=== PATIENT | male | born 1960 | race Caucasian/White ===

== ENCOUNTER 2019-08-14 16:57 | Outpatient (REF) | payer BC, SELFPAY ==
[2019-08-14 19:00] LABS: Anion Gap 9.7 mmol/L (3-11); BUN 25 mg/dL (7-18); CO2 27.3 mmol/L (21.0-32.0); CREATININE 1.38 mg/dL (0.70-1.30); Calcium 8.7 mg/dL (8.5-10.1); Chloride 95 mmol/L (98-107); Estimated GFR 52.38 (mL/min/1.73m2); Glucose 380 mg/dL (74-106); Potassium 3.9 mmol/L (3.5-5.1); Sodium 132 mmol/L (136-145)
== END 2019-08-14 17:17 ==
LOC: LBN 16:57
PROVIDERS: PCP Family Medicine; Visit Provider Family Medicine
DX: E11.43 Type 2 diabetes mellitus with diabetic autonomic (poly)neuropathy (principal); E11.65 Type 2 diabetes mellitus with hyperglycemia
CPT/HCPCS: 80048

== ENCOUNTER 2019-12-01 10:40 | Outpatient (CLI) | payer BC, SELFPAY ==
[2019-12-03 06:29] LABS: Patient Race White; SARS-CoV-2 RNA Undetected (Undetected); SARS-CoV-2 Specimen Source Nasopharynx
== END 2019-12-01 11:00 ==
PROVIDERS: PCP Family Medicine; Visit Provider Nurse Practitioner Adult Health
DX: Z11.59 Encounter for screening for other viral diseases (principal)
CPT/HCPCS: U0003

== ENCOUNTER 2021-07-04 15:46 | Outpatient (CLI) | payer BC, SELFPAY ==
--- NOTE | 2021-07-04 15:45 | RT.EKG_ITS ---
APPROVED REPORT Exam: Resting ECG Reason for Exam: use of methylphenidate Patient Location: O HR:60 bpm ECG Measurements Heart Rate 60 AXIS WI 245 P 11 QRSd 160 QRS -7 QT 478 T -21 QTc 477 Conclusion Sinus rhythm...normal P axis, V-rate 60- 99 Prolonged WI interval...WI >220, V-rate 50- 90 Right bundle branch block...QRSd>120, terminal axis(90,270)
== END 2021-07-04 15:47 | disposition home or self-care (01) ==
LOC: DI.KIM 15:49
PROVIDERS: PCP Family Medicine; Visit Provider Family Medicine
DX: Z79.899 Other long term (current) drug therapy (principal)
CPT/HCPCS: 93010

== ENCOUNTER → 2022-12-27 16:41 | Outpatient (CLI) | payer BC, SELFPAY ==
--- NOTE | 2022-12-27 | DI.RAD_ITS ---
Exam(s) XR FINGER RT LITTLE EXAM: XR FINGER RT LITTLE CLINICAL HISTORY: RT FINGER PAIN M79.644 ? FX. TECHNIQUE: 2D digital imaging was performed of the right finger. Three views were obtained. PA/AP, oblique, and lateral views were obtained. COMPARISON: No exams were available for comparison FINDINGS: BONES: There is a nondisplaced fracture of the posterior aspect of the base of the distal phalanx of the little finger. No bony destructive lesion is seen. JOINTS: No dislocation present. SOFT TISSUE: Normal. IMPRESSION: Nondisplaced fracture the dorsal aspect of the base of the distal phalanx of the little finger. DATA REPOSITORY: RADIATION DOSE DELIVERED:
== END ==
PROVIDERS: PCP Family Medicine; Visit Provider Physician Assistant Medical
DX: S62.666A Nondisplaced fracture of distal phalanx of right little finger, initial encounter for closed fracture (principal); X58.XXXA Exposure to other specified factors, initial encounter
CPT/HCPCS: 73140

== ENCOUNTER → 2023-01-30 19:10 | Outpatient (CLI) | payer BC, SELFPAY ==
--- NOTE | 2023-01-30 14:30 | DI.RAD_ITS ---
Exam(s) XR CHEST 2V PA LATERAL EXAM: XR CHEST 2V PA LATERAL CLINICAL HISTORY: L sided rhonchi R05.9 COUGH TECHNIQUE: 2D digital imaging was performed. COMPARISON: No exams were available for comparison FINDINGS: HEART: Normal size. Aorta: Not dilated. PULMONARY VASCULATURE: Normal. LUNGS: Clear. PLEURAL SPACE: No pleural effusion or pneumothorax. BONE:Unremarkable for age. Soft tissues: Unremarkable. IMPRESSION: No acute abnormality. DATA REPOSITORY: RADIATION DOSE DELIVERED:
== END ==
PROVIDERS: PCP Family Medicine; Visit Provider Family Medicine
DX: R05.9 Cough, unspecified (principal)
CPT/HCPCS: 71046

== ENCOUNTER 2023-07-14 17:27 | Emergency (ER) | payer BC, SELFPAY ==
[2023-07-14 17:28] VITALS: BP 187/82; PULSE 60; RESP 12; TEMP 36; O2SAT 96
--- NOTE | 2023-07-14 17:39 | ED.GENADUL_ITS ---
Discharge Plan Disposition Patient Disposition: Home Condition: Stable Discharge Details Clinical Impression: Impacted cerumen of right ear Primary Care Provider: Marquise Moyer ED Provider: Rivas Penny Home Meds and New Rx's Prescriptions: Continued sildenafil 100 mg tablet 100 mg PO DAILY PRN (Reason: sexual activity) Qty: 14 0RF Rx Instructions: administer 30 minutes to 4 hours before activity (DME) blood sugar diagnostic Strip See Rx Instructions .ROUTE .MEDSUPPLY Qty: 100 12RF Rx Instructions: As directed daily to maintain A1C less than 7; Dx: E11.43 fluticasone propionate [Flonase Allergy Relief] 50 mcg/actuation spray,suspension 1 spray ELEANOR BID Qty: 18.2 6RF Rx Instructions: administer into each nostril (DME) lancets [Soft Touch Lancets] Misc See Rx Instructions .ROUTE .MEDSUPPLY Qty: 200 6RF Rx Instructions: As directed QD to maintain A1C less than 7 methylphenidate HCl [Ritalin] 20 mg tablet 20 mg PO DAILY MDD 56 mg PRN (Reason: ADD) Qty: 28 0RF Rx Instructions: Take if needed at the end of the day if 36 mg dose wears off paroxetine HCl 20 mg tablet 20 mg PO DAILY Qty: 90 0RF methylphenidate HCl 36 mg tablet extended release 24hr 36 mg PO QAM MDD 56 mg Qty: 28 0RF methylphenidate HCl 36 mg tablet extended release 24hr 36 mg PO QAM MDD 56 mg Qty: 28 0RF (DME) pen needle, diabetic [BD Ultra-Fine Tuyet Pen Needle] 32 gauge x 5/32 needle See Rx Instructions .ROUTE .MEDSUPPLY Qty: 100 6RF Rx Instructions: USE 1 daily Dx: E11.43 amlodipine 10 mg tablet 10 mg PO DAILY Qty: 90 3RF naproxen 500 mg tablet 500 mg PO BID PRN (Reason: pain) Qty: 60 0RF Lantus Solostar U-100 Insulin 100 unit/mL (3 mL) insulin pen 30 unit subcut QHS Qty: 15 3RF Rx Instructions: Increase dose by one unit each week if fasting blood sugars are higher than 120 insulin aspart U-100 [Novolog FlexPen U-100 Insulin] 100 unit/mL (3 mL) insulin pen See Rx Instructions subcut TID Qty: 15 6RF Rx Instructions: 0 units less than 139; 2 units 140-180; 3 units 181-240; 4 units 241-300; 6 units 301-350; 8 units 351-400; call if over 400 subcutaneously three times a day; metformin 500 mg tablet See Rx Instructions .ROUTE .COMPLEX Qty: 180 3RF Dose Instruction: TAKE 2 TABLETS BY MOUTH TWICE DAILY Rx Instructions: TAKE 2 TABLETS BY MOUTH TWICE DAILY Jardiance 25 mg tablet 25 mg PO QAM Qty: 90 3RF aspirin [Adult Low Dose Aspirin] 81 mg tablet,delayed release (DR/EC) 81 mg PO DAILY atorvastatin 20 mg tablet 20 mg PO QHS Qty: 90 3RF tacrolimus 0.1 % ointment 1 applic topical BID betamethasone, augmented 0.05 % ointment 1 applic topical BID PRN (Reason: psoriasis) Rx Instructions: Apply to affected areas twice daily for 2 weeks. Take 1 week off, then repeat cycle as needed omeprazole 20 mg capsule,delayed release(DR/EC) 20 mg PO DAILY Qty: 90 3RF losartan-hydrochlorothiazide [Hyzaar] 100-25 mg tablet 1 tab PO DAILY Qty: 90 3RF (DME) [employer] Eh 3 Sensor Device See Rx Instructions .Route Qty: 1 6RF Rx Instructions: Dx: E11.65; check QID and prn to keep HbA1c less than 6.5% Discharge Instructions Instructions: Impactaci?n de Cerumen (ED) Additional Instructions: You were seen in the emergency department for the impacted earwax or cerumen of your right ear. As we discussed you can treat this at home using the behind the counter medicine called Colace, make sure you get the liquid form of the stool softener Colace. Add a capful of hydrogen peroxide, pour into affected ear and let soak for 15 to 30 minutes and purchase an [id number] ear flushing kit as we used today in the ER to perform this at home. Please return for any severe ear pain loss of hearing, remember to use warm water when flushing your ears. Referrals: Marquise Moyer DO [Primary Care Provider] - Discharge Data Discharge Date/Time-TO BE ENTERED AT DEPARTURE: 07/14/23 18:53 HPI General Date/Time Provider Initiated Documentation: 07/14/23 17:38 . HPI Narrative: 63 year-old male presents to ED today by POV/ambulating with a chief complaint of acute on chronic buildup of wax in the right ear this is a known issue with onset over the past few days. Quality described as muffled hearing, no radiation to fever, significant ear pain, pain behind the ear, swelling of the pinna, URI symptoms. Severity is described as mild. Palliating factors include attempted olive oil and hydrogen peroxide at home. Provoking factors include nothing specific. Patient not anticoagulated. Related Data Home Medications Medication Instructions Recorded Confirmed aspirin 81 mg tablet,delayed 81 mg PO DAILY 06/12/19 07/14/23 release (Adult Low Dose Aspirin) sildenafil 100 mg tablet 100 mg PO DAILY PRN sexual 06/19/19 07/14/23 activity #14 tabs pen needle, diabetic 32 gauge x #100 ea 04/29/20 05/03/23 (BD Ultra-Fine Tuyet Pen Needle) amlodipine 10 mg tablet 10 mg PO DAILY #90 tabs 10/10/21 07/14/23 atorvastatin 20 mg tablet 20 mg PO QHS #90 tabs 01/19/22 07/14/23 betamethasone, augmented 0.05 % 1 applic topical BID PRN psoriasis 05/15/22 07/14/23 topical ointment tacrolimus 0.1 % topical ointment 1 applic topical BID psoriasis 05/15/22 07/14/23 naproxen 500 mg tablet 500 mg PO BID PRN pain #60 tabs 05/16/22 07/14/23 blood sugar diagnostic #100 ea 06/27/22 05/03/23 fluticasone propionate 50 1 spray intranasal BID #18.2 mL 06/27/22 07/14/23 mcg/actuation nasal spray,suspension (Flonase Allergy Relief) lancets (Soft Touch Lancets) #200 ea 06/27/22 05/03/23 losartan 100 1 tab PO DAILY #90 tabs 12/22/22 07/14/23 mg-hydrochlorothiazide 25 mg tablet (Hyzaar) omeprazole 20 mg capsule,delayed 20 mg PO DAILY #90 caps 12/22/22 07/14/23 release empagliflozin 25 mg tablet 25 mg PO QAM #90 tabs 01/30/23 07/14/23 (Jardiance) insulin aspart U-100 100 unit/mL See Rx Instructions subcut TID #15 01/30/23 07/14/23 (3 mL) subcutaneous pen (Novolog mL FlexPen U-100 Insulin aspart) insulin glargine 100 unit/mL (3 30 unit (0.3 mL) subcut QHS #15 mL 01/30/23 07/14/23 mL) subcutaneous pen (Lantus Solostar U-100 Insulin) metformin 500 mg tablet See Rx Instructions .Route 01/30/23 07/14/23 .COMPLEX #180 tabs methylphenidate HCl 20 mg tablet 20 mg PO DAILY PRN ADD #28 tabs 05/03/23 07/14/23 (Ritalin) methylphenidate HCl 36 mg 36 mg PO QAM #28 tabs 05/03/23 05/03/23 tablet,extended release 24 hr methylphenidate HCl 36 mg 36 mg PO QAM #28 tabs 05/03/23 05/03/23 tablet,extended release 24 hr paroxetine HCl 20 mg tablet 20 mg PO DAILY #90 tabs 05/03/23 07/14/23 blood-glucose sensor (FreeStyle #1 ea 05/18/23 Eh 3 Sensor device) Previous Rx's Medication Instructions Recorded sildenafil 100 mg tablet 100 mg PO DAILY PRN sexual 06/19/19 activity #14 tabs pen needle, diabetic 32 gauge x #100 ea 04/29/20 (BD Ultra-Fine Tuyet Pen Needle) amlodipine 10 mg tablet 10 mg PO DAILY #90 tabs 10/10/21 atorvastatin 20 mg tablet 20 mg PO QHS #90 tabs 01/19/22 naproxen 500 mg tablet 500 mg PO BID PRN pain #60 tabs 05/16/22 blood sugar diagnostic #100 ea 06/27/22 fluticasone propionate 50 1 spray intranasal BID #18.2 mL 06/27/22 mcg/actuation nasal spray,suspension (Flonase Allergy Relief) lancets (Soft Touch Lancets) #200 ea 06/27/22 losartan 100 1 tab PO DAILY #90 tabs 12/22/22 mg-hydrochlorothiazide 25 mg tablet (Hyzaar) omeprazole 20 mg capsule,delayed 20 mg PO DAILY #90 caps 12/22/22 release empagliflozin 25 mg tablet 25 mg PO QAM #90 tabs 01/30/23 (Jardiance) insulin aspart U-100 100 unit/mL See Rx Instructions subcut TID #15 01/30/23 (3 mL) subcutaneous pen (Novolog mL FlexPen U-100 Insulin aspart) insulin glargine 100 unit/mL (3 30 unit (0.3 mL) subcut QHS #15 mL 01/30/23 mL) subcutaneous pen (Lantus Solostar U-100 Insulin) metformin 500 mg tablet See Rx Instructions .Route 01/30/23 .COMPLEX #180 tabs methylphenidate HCl 20 mg tablet 20 mg PO DAILY PRN ADD #28 tabs 05/03/23 (Ritalin) methylphenidate HCl 36 mg 36 mg PO QAM #28 tabs 05/03/23 tablet,extended release 24 hr methylphenidate HCl 36 mg 36 mg PO QAM #28 tabs 05/03/23 tablet,extended release 24 hr paroxetine HCl 20 mg tablet 20 mg PO DAILY #90 tabs 05/03/23 blood-glucose sensor (FreeStyle #1 ea 05/18/23 Eh 3 Sensor device) Allergies Allergy/AdvReac Type Severity Reaction Status Date / Time enviromental Allergy Intermediate chest Uncoded 05/03/23 15:34 tightness, dizzy, itchy watery eyes/nose cats claw Allergy Mild Determined Uncoded 05/03/23 15:34 through testing General Stated Complaint: EarProblem WILLOW: 4 Review of Systems All systems reviewed & are unremarkable except as noted in HPI and below Exam Narrative Exam Narrative: GENERAL APPEARANCE: Well-nourished, non-toxic, awake and alert, atraumatic, no acute distress. SKIN: Warm, pink, dry, intact, without rashes/lesions/ulcerations. HEAD: Normocephalic, atraumatic, normal hair distribution for gender/age. EYES: Pupils PERRLA, EOMs intact without nystagmus, normal conjunctiva, no exudates on lids/lashes. ENT: Nares patent, no circumoral cyanosis, no facial swelling, R ear cerumen impaction, L TM wnl, no mastoid tenderness, R TM clear and wnl after removal of cerumen NECK: Supple, trachea midline, painless cervical ROM. LUNGS/CHEST: Non-labored respirations, normal A/P diameter, symmetrical expansion, no chest wall deformity HEART (CV/PV): No peripheral edema, no JVD. ABDOMEN: Soft, non-distended, no guarding. MSK: Normal ROM, no swelling/deformity to bilateral UEs or LEs, moving all extremities without weakness, no cyanosis, spine midline without tenderness, normal curvature. NEURO: Mental Status AAOx4 - alert to person, place, time, events No facial droop, no forehead involvement. Motor: No focal weakness - strength 5/5 in bilateral UEs and LEs, proximal and distal, symmetric. Sensory: sensation intact to light touch globally. Gait normal: patient ambulated without ataxia into ED room. PSYCH: euthymic, cooperative, pleasant, appropriate speech Course Vital Signs Vital signs: Vital Signs Temperature 36.0 C L 07/14/23 17:28 Pulse 60 07/14/23 17:28 Respiratory Rate 12 07/14/23 17:28 Blood Pressure 187/82 H 07/14/23 17:28 Pulse Oximetry 96 07/14/23 17:28 Temperature 36.0 C L 07/14/23 17:28 Temperature Source Temporal Artery Scan 07/14/23 17:28 Pulse 60 07/14/23 17:28 Respiratory Rate 12 07/14/23 17:28 Respiratory Effort Normal, Non-Labored 07/14/23 17:30 Blood Pressure 187/82 H 07/14/23 17:28 Blood Pressure Position Sitting 07/14/23 17:28 Pulse Oximetry 96 07/14/23 17:28 Oxygen Delivery Method Room Air 07/14/23 17:28 Oxygen Flow Rate 0 07/14/23 17:28 Pain Level 3 07/14/23 17:28 Medical Decision Making This dictation utilizes [id number] dictation software and may contain unedited grammatical errors. 63 y/o M presents to ED today with a chief complaint of acute on chronic cerumen impaction- has tried homeopathic remedies without relief, reporting mild muffled hearing - no pain or fever or URI symptoms. Patients' medical history: Noncontributory. Family and social history: Noncontributory. Pertinent exam findings / vital signs include ENT: Nares patent, no circumoral cyanosis, no facial swelling, R ear cerumen impaction, L TM wnl, no mastoid tenderness, R TM clear and wnl after removal of cerumen. Differential / pathologies of concern include cerumen impaction, not otic infection. Diagnostic studies of: -None. Interventions of: -Soaked to the right otic canal and Colace mixed with several drops of hydrogen peroxide to break apart cerumen and irrigated with otic irrigation kit. ED Course/Assessment/Plan: 63-year-old male presents with cerumen impaction of right ear, there is no signs on exam to suggest any more insidious pathology, his TMs were clear after cerumen removal, counseled that he can perform this intervention at home without any prescription medications. The patient verbalized understanding of this plan, strict return criteria for signs of severe infection especially with pain behind the ear with fever. Findings not consistent with mastoiditis, acute otitis media. Disposition of Impacted Cerumen of Right Ear. Patient verbalized understanding of the plan and return to ED criteria and engaged in shared decision making. Medical Records Medical records reviewed: Yes I reviewed the patient's medical records. Quality:[facility] Health Related Social Needs: No Data to Display PENDING SALE TO [facility] All Active Problems (Updated 07/14/23 @ 18:43 by TIANNA Ortega) Impacted cerumen of right ear (Acute) Diabetes mellitus, type II, insulin dependent (Acute) Shoulder arthritis (Acute) Family history of prostate cancer in father (Chronic) Father of disease Osteoarthritis of right knee (Acute) Diplopia (Acute) With visual field defects [facility] [place]. 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 Macular edema present both eyes. Psoriasis (Chronic) GERD without esophagitis (Acute) Erectile dysfunction (Acute) Depressive disorder (Chronic) ADD (attention deficit disorder) (Acute) Hyperlipidemia (Acute) Hypertension (Chronic) Medical History Basal cell carcinoma Surgical History History of Mohs micrographic surgery for skin cancer 04/26/2022 From [facility] (at oGrdy Manning MD (basal cell carcinoma) Family History Mother Skin cancer Anxiety Depression Hypertension Social History Smoking/Tobacco Use Status: Current-Occasional Smokeless tobacco user: other (cigars once a month) Smoking risk assessment performed?: Yes Alcohol Intake: current Alcohol type: hard liquor Drug use: Never Substance use type: does not use Adopted: No Caregiver/Support person: No Foster care: No Household members: spouse, children and other Details: mother Housing: house Number of Children: 3 Education Level: other Details: Bachelors degree Do you need help understanding health information?: Never 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 Pets and animals: Yes Pets and animals: cat(s) and dog(s) Sexually active: Yes Do you think of yourself as: straight/heterosexual Current gender identity: male What is your relationship status?: How often do you talk on the phone with friends or family?: three or more times per week How often do you get together with friends or relatives?: three or more times per week Do you belong to any clubs or organized social groups?: no Panel score (0-1 are the most socially isolated patients): 2 What type of physical activity do you participate in: other Details: hiking Duration: 30-45 minutes/day Frequency: 5-6 times per week Doreen/Restorationism: Gnosticism Special doreen needs: No Seatbelt use: always Helmet use: Yes Drive intox or ride w/intox chair car driver: No
[2023-07-14] MEDS: Docusate Sodium 100 MG/10 ML CUP PO (18:00)
[2023-07-14 18:50] VITALS: BP 150/75; PULSE 61; RESP 18; O2SAT 99
== END 2023-07-14 18:53 | disposition home or self-care (01) ==
PROVIDERS: Emergency Provider Physician Assistant; PCP Family Medicine
DX: H61.21 Impacted cerumen, right ear; E11.9 Type 2 diabetes mellitus without complications; Z79.4 Long term (current) use of insulin; I10 Essential (primary) hypertension; Z79.899 Other long term (current) drug therapy
CPT/HCPCS: 69209; 99282; 99283

== ENCOUNTER 2023-08-26 16:43 | Emergency (ER) | payer BC, SELFPAY ==
[2023-08-26 16:50] VITALS: BP 200/75; PULSE 63; RESP 18; TEMP 36.6; O2SAT 98
[2023-08-26 19:30] VITALS: TEMP 36.6
--- NOTE | 2023-08-26 19:31 | ED.GENADUL_ITS ---
Discharge Plan Disposition Patient Disposition: Home Condition: Stable Discharge Details Clinical Impression: Diabetic foot ulcer Primary Care Provider: Marquise Moyer ED Provider: Rivas Penny Home Meds and New Rx's Prescriptions: New cephalexin 500 mg capsule 500 mg PO QID 10 Days Qty: 40 0RF mupirocin 2 % ointment 1 applic topical BID Qty: 15 0RF Rx Instructions: apply 1/2 to affected area twice per day Continued sildenafil 100 mg tablet 100 mg PO DAILY PRN (Reason: sexual activity) Qty: 14 0RF Rx Instructions: administer 30 minutes to 4 hours before activity (DME) blood sugar diagnostic Strip See Rx Instructions .ROUTE .MEDSUPPLY Qty: 100 12RF Rx Instructions: As directed daily to maintain A1C less than 7; Dx: E11.43 fluticasone propionate [Flonase Allergy Relief] 50 mcg/actuation spray,suspension 1 spray ELEANOR BID Qty: 18.2 6RF Rx Instructions: administer into each nostril (DME) lancets [Soft Touch Lancets] Misc See Rx Instructions .ROUTE .MEDSUPPLY Qty: 200 6RF Rx Instructions: As directed QD to maintain A1C less than 7 paroxetine HCl 30 mg tablet 30 mg PO DAILY Qty: 90 3RF omeprazole 20 mg capsule,delayed release(DR/EC) 20 mg PO DAILY Qty: 90 3RF (DME) FreeStyle Eh 3 Sensor Device See Rx Instructions .Route Qty: 1 6RF Rx Instructions: Dx: E11.65; check QID and prn to keep HbA1c less than 6.5% methylphenidate HCl 20 mg tablet 20 mg PO DAILY MDD 56 mg Qty: 28 0RF Rx Instructions: Take after ER tablet wears off, if needed methylphenidate HCl [Ritalin] 20 mg tablet 20 mg PO DAILY MDD 56 mg PRN (Reason: ADD) Qty: 28 0RF Rx Instructions: Take if needed at the end of the day if 36 mg dose wears off methylphenidate HCl 20 mg tablet 20 mg PO DAILY MDD 56 mg Qty: 28 0RF Rx Instructions: Take after the ER tablet wears off, if needed methylphenidate HCl 36 mg tablet extended release 24hr 36 mg PO QAM MDD 56 mg Qty: 28 0RF methylphenidate HCl 36 mg tablet extended release 24hr 36 mg PO QAM MDD 56 mg Qty: 28 0RF methylphenidate HCl 36 mg tablet extended release 24hr 36 mg PO DAILY MDD 56 mg Qty: 28 0RF (DME) pen needle, diabetic [BD Ultra-Fine Tuyet Pen Needle] 32 gauge x 5/32 needle See Rx Instructions .ROUTE .MEDSUPPLY Qty: 100 6RF Rx Instructions: USE 1 daily Dx: E11.43 amlodipine 10 mg tablet 10 mg PO DAILY Qty: 90 3RF naproxen 500 mg tablet 500 mg PO BID PRN (Reason: pain) Qty: 60 0RF Lantus Solostar U-100 Insulin 100 unit/mL (3 mL) insulin pen 30 unit subcut QHS Qty: 15 3RF Rx Instructions: Increase dose by one unit each week if fasting blood sugars are higher than 120 insulin aspart U-100 [Novolog FlexPen U-100 Insulin] 100 unit/mL (3 mL) insulin pen See Rx Instructions subcut TID Qty: 15 6RF Rx Instructions: 0 units less than 139; 2 units 140-180; 3 units 181-240; 4 units 241-300; 6 units 301-350; 8 units 351-400; call if over 400 subcutaneously three times a day; metformin 500 mg tablet See Rx Instructions .ROUTE .COMPLEX Qty: 180 3RF Dose Instruction: TAKE 2 TABLETS BY MOUTH TWICE DAILY Rx Instructions: TAKE 2 TABLETS BY MOUTH TWICE DAILY Jardiance 25 mg tablet 25 mg PO QAM Qty: 90 3RF aspirin [Adult Low Dose Aspirin] 81 mg tablet,delayed release (DR/EC) 81 mg PO DAILY atorvastatin 20 mg tablet 20 mg PO QHS Qty: 90 3RF tacrolimus 0.1 % ointment 1 applic topical BID betamethasone, augmented 0.05 % ointment 1 applic topical BID PRN (Reason: psoriasis) Rx Instructions: Apply to affected areas twice daily for 2 weeks. Take 1 week off, then repeat cycle as needed losartan-hydrochlorothiazide [Hyzaar] 100-25 mg tablet 1 tab PO DAILY Qty: 90 3RF Discharge Instructions Instructions: Cephalexin, Mupirocin, Foot Care for Diabetics Additional Instructions: You were seen in the emergency department for your left third toe diabetic foot ulcer, please do warm compresses and Epsom salt soaks as we discussed, I have prescribed you a topical prescription strength antibiotic to apply 2-3 times per day, I have started you on oral antibiotics called cephalexin for infection. Please get your primary care to refer you to a wound care clinic in the area, there are none at this hospital but a simple Google search will directly to their locations. I believe there is some in [place]. Please return for signs of neurovascular compromise to the foot or spreading inf ection like red streaking up the foot and leg, increasing pain, drainage of pus from the area, fever. Referrals: Marquise Moyer DO [Primary Care Provider] - HPI General Date/Time Provider Initiated Documentation: 08/26/23 17:06 . HPI Narrative: 63 year-old male presents to ED today by POV/ambulating with a chief complaint of left third toe diabetic foot wound that has been not responding to bacitracin for over a week. Quality described as not overtly painful, scabbed over aspect that contacts the second toe, no radiation to red streaking up the leg, purulent drainage, complete numbness, draining wound, deep ulceration. Severity is described as mild. Palliating factors include bacitracin without relief. Provoking factors include T2DM. Events leading up to the incident/Associated Symptoms: Patient does not have follow-up with wound care. Patient not anticoagulated. Related Data Home Medications Medication Instructions Recorded Confirmed aspirin 81 mg tablet,delayed 81 mg PO DAILY 06/12/19 08/26/23 release (Adult Low Dose Aspirin) sildenafil 100 mg tablet 100 mg PO DAILY PRN sexual 06/19/19 08/26/23 activity #14 tabs pen needle, diabetic 32 gauge x #100 ea 04/29/20 08/26/23 (BD Ultra-Fine Tuyet Pen Needle) amlodipine 10 mg tablet 10 mg PO DAILY #90 tabs 10/10/21 08/26/23 atorvastatin 20 mg tablet 20 mg PO QHS #90 tabs 01/19/22 08/26/23 betamethasone, augmented 0.05 % 1 applic topical BID PRN psoriasis 05/15/22 08/26/23 topical ointment tacrolimus 0.1 % topical ointment 1 applic topical BID psoriasis 05/15/22 08/26/23 naproxen 500 mg tablet 500 mg PO BID PRN pain #60 tabs 05/16/22 08/26/23 blood sugar diagnostic #100 ea 06/27/22 08/26/23 fluticasone propionate 50 1 spray intranasal BID #18.2 mL 06/27/22 08/26/23 mcg/actuation nasal spray,suspension (Flonase Allergy Relief) lancets (Soft Touch Lancets) #200 ea 06/27/22 08/26/23 losartan 100 1 tab PO DAILY #90 tabs 12/22/22 08/26/23 mg-hydrochlorothiazide 25 mg tablet (Hyzaar) empagliflozin 25 mg tablet 25 mg PO QAM #90 tabs 01/30/23 08/26/23 (Jardiance) insulin aspart U-100 100 unit/mL See Rx Instructions subcut TID #15 01/30/23 08/26/23 (3 mL) subcutaneous pen (Novolog mL FlexPen U-100 Insulin aspart) insulin glargine 100 unit/mL (3 30 unit (0.3 mL) subcut QHS #15 mL 01/30/23 08/26/23 mL) subcutaneous pen (Lantus Solostar U-100 Insulin) metformin 500 mg tablet See Rx Instructions .Route 01/30/23 08/26/23 .COMPLEX #180 tabs blood-glucose sensor (FreeStyle #1 ea 08/09/23 08/26/23 Eh 3 Sensor device) methylphenidate HCl 20 mg tablet 20 mg PO DAILY #28 tabs 08/09/23 08/26/23 methylphenidate HCl 20 mg tablet 20 mg PO DAILY #28 tabs 08/09/23 08/26/23 methylphenidate HCl 20 mg tablet 20 mg PO DAILY PRN ADD #28 tabs 08/09/23 08/26/23 (Ritalin) methylphenidate HCl 36 mg 36 mg PO DAILY #28 tabs 08/09/23 08/26/23 tablet,extended release 24 hr methylphenidate HCl 36 mg 36 mg PO QAM #28 tabs 08/09/23 08/26/23 tablet,extended release 24 hr methylphenidate HCl 36 mg 36 mg PO QAM #28 tabs 08/09/23 08/26/23 tablet,extended release 24 hr omeprazole 20 mg capsule,delayed 20 mg PO DAILY #90 caps 08/09/23 08/26/23 release paroxetine HCl 30 mg tablet 30 mg PO DAILY #90 tabs 08/09/23 08/26/23 cephalexin 500 mg capsule 500 mg PO QID 10 days #40 caps 08/26/23 mupirocin 2 % topical ointment 1 applic topical BID #15 grams 08/26/23 Previous Rx's Medication Instructions Recorded sildenafil 100 mg tablet 100 mg PO DAILY PRN sexual 06/19/19 activity #14 tabs pen needle, diabetic 32 gauge x #100 ea 04/29/20 (BD Ultra-Fine Tuyet Pen Needle) amlodipine 10 mg tablet 10 mg PO DAILY #90 tabs 10/10/21 atorvastatin 20 mg tablet 20 mg PO QHS #90 tabs 01/19/22 naproxen 500 mg tablet 500 mg PO BID PRN pain #60 tabs 05/16/22 blood sugar diagnostic #100 ea 06/27/22 fluticasone propionate 50 1 spray intranasal BID #18.2 mL 06/27/22 mcg/actuation nasal spray,suspension (Flonase Allergy Relief) lancets (Soft Touch Lancets) #200 ea 06/27/22 losartan 100 1 tab PO DAILY #90 tabs 12/22/22 mg-hydrochlorothiazide 25 mg tablet (Hyzaar) empagliflozin 25 mg tablet 25 mg PO QAM #90 tabs 01/30/23 (Jardiance) insulin aspart U-100 100 unit/mL See Rx Instructions subcut TID #15 01/30/23 (3 mL) subcutaneous pen (Novolog mL FlexPen U-100 Insulin aspart) insulin glargine 100 unit/mL (3 30 unit (0.3 mL) subcut QHS #15 mL 01/30/23 mL) subcutaneous pen (Lantus Solostar U-100 Insulin) metformin 500 mg tablet See Rx Instructions .Route 01/30/23 .COMPLEX #180 tabs blood-glucose sensor (FreeStyle #1 ea 08/09/23 Eh 3 Sensor device) methylphenidate HCl 20 mg tablet 20 mg PO DAILY #28 tabs 08/09/23 methylphenidate HCl 20 mg tablet 20 mg PO DAILY #28 tabs 08/09/23 methylphenidate HCl 20 mg tablet 20 mg PO DAILY PRN ADD #28 tabs 08/09/23 (Ritalin) methylphenidate HCl 36 mg 36 mg PO DAILY #28 tabs 08/09/23 tablet,extended release 24 hr methylphenidate HCl 36 mg 36 mg PO QAM #28 tabs 08/09/23 tablet,extended release 24 hr methylphenidate HCl 36 mg 36 mg PO QAM #28 tabs 08/09/23 tablet,extended release 24 hr omeprazole 20 mg capsule,delayed 20 mg PO DAILY #90 caps 08/09/23 release paroxetine HCl 30 mg tablet 30 mg PO DAILY #90 tabs 08/09/23 cephalexin 500 mg capsule 500 mg PO QID 10 days #40 caps 08/26/23 mupirocin 2 % topical ointment 1 applic topical BID #15 grams 08/26/23 Allergies Allergy/AdvReac Type Severity Reaction Status Date / Time enviromental Allergy Intermediate chest Uncoded 08/09/23 15:40 tightness, dizzy, itchy watery eyes/nose cats claw Allergy Mild Determined Uncoded 08/09/23 15:40 through testing General Stated Complaint: Cellulitis WILLOW: 4 Review of Systems All systems reviewed & are unremarkable except as noted in HPI and below Exam Narrative Exam Narrative: GENERAL APPEARANCE: Well-nourished, non-toxic, awake and alert, atraumatic, no acute distress. SKIN: Warm, pink, dry, intact, 0.5cm ulceration superficial to the medial aspect of the left third toe, no lymphadenitis, no purulent drainage, brisk capillary refill. HEAD: Normocephalic, atraumatic, normal hair distribution for gender/age. EYES: Pupils PERRLA, EOMs intact without nystagmus, normal conjunctiva, no exudates on lids/lashes. ENT: Nares patent, no circumoral cyanosis, no facial swelling NECK: Supple, trachea midline, painless cervical ROM. LUNGS/CHEST: Non-labored respirations, normal A/P diameter, symmetrical expansion, no chest wall deformity HEART (CV/PV): Regular rate, L dorsalis pedis pulse 2+, no peripheral edema, no JVD. ABDOMEN: Soft, non-distended, no guarding. MSK: Normal ROM, no swelling/deformity to bilateral UEs or LEs, moving all extremities without weakness, no cyanosis, spine midline without tenderness, normal curvature. NEURO: Mental Status AAOx4 - alert to person, place, time, events No facial droop, no forehead involvement. Motor: No focal weakness - strength 5/5 in bilateral UEs and LEs, proximal and distal, symmetric. Sensory: sensation intact to light touch globally. Gait normal: patient ambulated without ataxia into ED room. PSYCH: euthymic, cooperative, pleasant, appropriate speech Course Vital Signs Vital signs: Vital Signs Temperature 36.6 C 08/26/23 16:50 Pulse 63 08/26/23 16:50 Respiratory Rate 18 08/26/23 16:50 Blood Pressure 200/75 H 08/26/23 16:50 Pulse Oximetry 98 08/26/23 16:50 Temperature 36.6 C 08/26/23 16:50 Temperature Source Temporal Artery Scan 08/26/23 16:50 Pulse 63 08/26/23 16:50 Respiratory Rate 18 08/26/23 16:50 Blood Pressure 200/75 H 08/26/23 16:50 Blood Pressure Position Sitting 08/26/23 16:50 Pulse Oximetry 98 08/26/23 16:50 Oxygen Delivery Method Room Air 08/26/23 16:50 Oxygen Flow Rate 0 08/26/23 16:50 Medical Decision Making This dictation utilizes [id number] dictation software and may contain unedited grammatical errors. 63 year-old male presents to ED today by POV/ambulating with a chief complaint of left third toe diabetic foot wound that has been not responding to bacitracin for over a week. Quality described as not overtly painful, scabbed over aspect that contacts the second toe, no radiation to red streaking up the leg, purulent drainage, complete numbness, draining wound, deep ulceration. Severity is described as mild. Palliating factors include bacitracin without relief. Provoking factors include T2DM. Events leading up to the incident/Associated Symptoms: Patient does not have follow-up with wound care. Patients' medical history: T2DM, psoriasis, hypertension. Family and social history: noncontributory. Pertinent exam findings / vital signs include 0.5cm ulceration superficial to the medial aspect of the left third toe, no lymphadenitis, no purulent drainage, brisk capillary refill. Differential / pathologies of concern include diabetic foot ulcer, cellulitis, not abscess, not NV compromise. Diagnostic studies of: -none. Interventions of: -Rx cephalexin, Rx mupirocin, recommend wound care visits. ED Course/Assessment/Plan: 63-year-old male presents with left third toe diabetic foot ulceration, no lymphadenitis spreading of the foot, he is neurovascularly intact with brisk capillary refill distal to the ulceration, started him on Keflex and ibuprofen, recommend warm soaks and hot compresses and follow-up with his primary care provider for referral to wound care. Strict return criteria for signs of worsening infection or neurovascular compromise. Findings not consistent with abscess, NV comrpomise. Disposition of Diabetic Foot Ulcer. Patient verbalized understanding of the plan and return to ED criteria and engaged in shared decision making. Medical Records Medical records reviewed: Yes I reviewed the patient's medical records. Quality:SDOH Health Related Social Needs: No Data to Display PFSH All Active Problems (Updated 08/26/23 @ 19:37 by TIANNA Ortega) Diabetic foot ulcer (Acute) Diabetes mellitus, type II, insulin dependent (Acute) Shoulder arthritis (Acute) Family history of prostate cancer in father (Chronic) Father of disease Osteoarthritis of right knee (Acute) Diplopia (Acute) With visual field defects [facility] Dr. 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 Macular edema present both eyes. Psoriasis (Chronic) GERD without esophagitis (Acute) Erectile dysfunction (Acute) Depressive disorder (Chronic) ADD (attention deficit disorder) (Acute) Hyperlipidemia (Acute) Hypertension (Chronic) Medical History (Updated 08/26/23 @ 19:37 by TIANNA Ortega) Basal cell carcinoma Surgical History (Updated 08/09/23 @ 16:23 by Kassandra Allen) Benign neoplasm of skin of forehead 1952 - Refugee status - [facility] History of tonsillectomy (~1964) [facility] History of hernia repair (~2021) [facility] History of Mohs micrographic surgery for skin cancer 04/26/2022 [facility] Gianluca Manning MD (basal cell carcinoma) Family History Mother Skin cancer Anxiety Depression Hypertension Social History Smoking/Tobacco Use Status: Current-Occasional Smokeless tobacco user: other (cigars once a month) Smoking risk assessment performed?: Yes Alcohol Intake: current Alcohol type: hard liquor Drug use: Never Substance use type: does not use Adopted: No Caregiver/Support person: No Foster care: No Household members: spouse, children and other Details: mother Housing: house Number of Children: 3 Education Level: other Details: Bachelors degree Do you need help understanding health information?: Never 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 Pets and animals: Yes Pets and animals: cat(s) and dog(s) Sexually active: Yes Do you think of yourself as: straight/heterosexual Current gender identity: male What is your relationship status?: How often do you talk on the phone with friends or family?: three or more times per week How often do you get together with friends or relatives?: three or more times per week Do you belong to any clubs or organized social groups?: no Panel score (0-1 are the most socially isolated patients): 2 What type of physical activity do you participate in: other Details: hiking Duration: 30-45 minutes/day Frequency: 5-6 times per week Doreen/Protestant: Pentecostalism Special doreen needs: No Seatbelt use: always Helmet use: Yes Drive intox or ride w/intox street flusher driver: No
[2023-08-26] MEDS: Cephalexin 500 MG CAP, 2 CAPS/BTL PO (20:00)
== END 2023-08-26 19:51 | disposition home or self-care (01) ==
PROVIDERS: Emergency Provider Physician Assistant; PCP Family Medicine
DX: E11.621 Type 2 diabetes mellitus with foot ulcer; L97.521 Non-pressure chronic ulcer of other part of left foot limited to breakdown of skin
CPT/HCPCS: 99283

== ENCOUNTER 2024-01-21 18:02 | Emergency (ER) | payer BC, SELFPAY ==
[2024-01-21 18:14] VITALS: BP 166/82; PULSE 63; RESP 14; TEMP 36.9; O2SAT 97
--- NOTE | 2024-01-21 18:15 | DI.RAD_ITS ---
Exam(s) XR FOOT RT COMPLETE EXAM: XR FOOT RT COMPLETE CLINICAL HISTORY: Nontraumatic pain to dorsum of foot. TECHNIQUE: 2D digital imaging was performed of the right foot. Three images were obtained. AP, obl ique and lateral views were obtained. COMPARISON: No exams were available for comparison FINDINGS: BONES: No acute fracture is present. No bony destructive lesion is seen. There is a small plantar radha caneal spur. Soft tissue calcifications are seen posterior to the calcaneus. These may be associate d with the Achilles tendon. JOINTS: No dislocation present. Hammertoe deformities of the 2nd through 5th toes are noted. The dusty nt spaces are well maintained. SOFT TISSUE: Normal. IMPRESSION: No acute abnormality. DATA REPOSITORY: RADIATION DOSE DELIVERED:
--- NOTE | 2024-01-21 19:37 | W.ED.GENAD ---
Discharge Plan Disposition Patient Disposition: Home Discharge Details Clinical Impression: Foot pain, right Primary Care Provider: Marquise Moyer ED Provider: Jaky Grant Home Meds and New Rx's Prescriptions: No Action sildenafil 100 mg tablet 100 mg PO DAILY PRN (Reason: sexual activity) Qty: 14 0RF Rx Instructions: administer 30 minutes to 4 hours before activity (DME) blood sugar diagnostic Strip See Rx Instructions .ROUTE .MEDSUPPLY Qty: 100 12RF Rx Instructions: As directed daily to maintain A1C less than 7; Dx: E11.43 fluticasone propionate [Flonase Allergy Relief] 50 mcg/actuation spray,suspension 1 spray ELEANOR BID Qty: 18.2 6RF Rx Instructions: administer into each nostril (DME) lancets [Soft Touch Lancets] Misc See Rx Instructions .ROUTE .MEDSUPPLY Qty: 200 6RF Rx Instructions: As directed QD to maintain A1C less than 7 paroxetine HCl 30 mg tablet 30 mg PO DAILY Qty: 90 3RF omeprazole 20 mg capsule,delayed release(DR/EC) 20 mg PO DAILY Qty: 90 3RF ketoconazole 2 % cream 1 applic topical DAILY Qty: 120 6RF Rx Instructions: Apply to toenails once daily (DME) pen needle, diabetic [BD Ultra-Fine Tuyet Pen Needle] 32 gauge x 5/32 needle See Rx Instructions .ROUTE .MEDSUPPLY Qty: 100 6RF Rx Instructions: USE 1 daily Dx: E11.43 insulin aspart U-100 [Novolog FlexPen U-100 Insulin] 100 unit/mL (3 mL) insulin pen See Rx Instructions subcut TID Qty: 15 6RF Rx Instructions: 0 units less than 139; 2 units 140-180; 3 units 181-240; 4 units 241-300; 6 units 301-350; 8 units 351-400; call if over 400 subcutaneously three times a day; metformin 500 mg tablet See Rx Instructions .ROUTE .COMPLEX Qty: 180 3RF Dose Instruction: TAKE 2 TABLETS BY MOUTH TWICE DAILY Rx Instructions: TAKE 2 TABLETS BY MOUTH TWICE DAILY Jardiance 25 mg tablet 25 mg PO QAM Qty: 90 3RF amlodipine 10 mg tablet 10 mg PO DAILY Qty: 90 3RF atorvastatin 20 mg tablet 20 mg PO QHS Qty: 90 3RF Lantus Solostar U-100 Insulin 100 unit/mL (3 mL) insulin pen 30 unit subcut QHS Qty: 15 3RF Rx Instructions: Increase dose by one unit each week if fasting blood sugars are higher than 120 losartan-hydrochlorothiazide [Hyzaar] 100-25 mg tablet 1 tab PO DAILY Qty: 90 3RF (DME) FreeStyle Eh 3 Sensor Device See Rx Instructions .Route Qty: 1 6RF Rx Instructions: Dx: E11.65; check QID and prn to keep HbA1c less than 6.5% methylphenidate HCl [Ritalin] 20 mg tablet 20 mg PO DAILY MDD 56 mg PRN (Reason: ADD) Qty: 28 0RF Rx Instructions: Take if needed at the end of the day if 27 mg dose wears off methylphenidate HCl 27 mg tablet extended release 24hr 27 mg PO QAM MDD 47 mg Qty: 28 0RF methylphenidate HCl 27 mg tablet extended release 24hr 27 mg PO QAM MDD 47 mg Qty: 28 0RF methylphenidate HCl 20 mg tablet 20 mg PO DAILY MDD 47 mg Qty: 28 0RF Rx Instructions: Take after ER tablet wears off, if needed methylphenidate HCl 20 mg tablet 20 mg PO DAILY MDD 47 mg Qty: 28 0RF Rx Instructions: Take after the ER tablet wears off, if needed methylphenidate HCl 27 mg tablet extended release 24hr 27 mg PO DAILY MDD 47 mg Qty: 28 0RF aspirin [Adult Low Dose Aspirin] 81 mg tablet,delayed release (DR/EC) 81 mg PO DAILY tacrolimus 0.1 % ointment 1 applic topical BID betamethasone, augmented 0.05 % ointment 1 applic topical BID PRN (Reason: psoriasis) Rx Instructions: Apply to affected areas twice daily for 2 weeks. Take 1 week off, then repeat cycle as needed Discharge Instructions Additional Instructions: I encourage you to follow-up with [facility] podiatry for reassessment and management of your foot pain. Your x-ray was negative, no sign of fracture today. Please wear supportive shoes such as your hiking boots. Elevate your foot at the end of the day. Keep an eye out for signs of infection such as redness, warmth, increasing pain, swelling, fever/chills. If you notice any of these, please seek care immediately. Referrals: Rut Thompson DPM [[facility] STAFF PHYSICIAN] - HPI General Date/Time Provider Initiated Documentation: 01/21/24 18:12. HPI Narrative: Juanito is a 63year old male who presents to the emergency department today for evaluation of right upper foot pain. He reports that pain started approximately 2 weeks ago, is mild in the morning but increases throughout the day with walking. He says it feels better when he is wearing hiking boots. Pain is described as a burning pain/regular pain. No known injury. No overlying rashes, warmth, or redness. Denies fever/chills, new paresthesias (has neuropathy per baseline), general malaise, knee pain, other lower leg pain, other new joint or muscle aches/pains. No history of previous pain similar to this.. Past medical history is significant for T2DM that is well-controlled, blood sugars usually around 140 being treated with insulin. He also has arthritis. Physical exam reassuring. Mild tenderness to palpation of dorsum of foot over first and second metatarsals, no point tenderness or deformity noted. No redness/warmth/rashes.+ CMS to toes, no pain or swelling of MTP joint. Brisk cap refill. Full painless range of motion to ankle and knee. D/dx includes but is not limited to: Stress fracture, neuropathic pain, tendinitis. No red flags concerning for cellulitis or infectious/vascular process requiring blood work or other diagnostic imaging on an emergent basis at this time. I independently interpreted the following tests: Right foot x-ray, no acute findings. This was confirmed by radiologist Unclear etiology of foot pain, though likely neuropathic pain versus tendinitis. Recommend follow-up with podiatry. Reviewed discharge instructions with patient, including symptomatic management and red flags indicating need for return to emergency care Related Data Home Medications ?Medication ?Instructions ?Recorded ?Confirmed aspirin 81 mg tablet,delayed 81 mg PO DAILY 06/12/19 12/14/23 release (Adult Low Dose Aspirin) sildenafil 100 mg tablet 100 mg PO DAILY PRN sexual 06/19/19 12/14/23 activity #14 tabs pen needle, diabetic 32 gauge x #100 ea 04/29/20 12/14/2332 (BD Ultra-Fine Tuyet Pen Needle) betamethasone, augmented 0.05 % 1 applic topical BID PRN psoriasis 05/15/22 12/14/23 topical ointment tacrolimus 0.1 % topical ointment 1 applic topical BID psoriasis 05/15/22 12/14/23 blood sugar diagnostic #100 ea 06/27/22 12/14/23 fluticasone propionate 50 1 spray intranasal BID #18.2 mL 06/27/22 12/14/23 mcg/actuation nasal spray,suspension (Flonase Allergy Relief) lancets (Soft Touch Lancets) #200 ea 06/27/22 12/14/23 empagliflozin 25 mg tablet 25 mg PO QAM #90 tabs 01/30/23 12/14/23 (Jardiance) insulin aspart U-100 100 unit/mL See Rx Instructions subcut TID #15 01/30/23 12/14/23 (3 mL) subcutaneous pen (Novolog mL FlexPen U-100 Insulin aspart) metformin 500 mg tablet See Rx Instructions .Route 01/30/23 12/14/23 .COMPLEX #180 tabs omeprazole 20 mg capsule,delayed 20 mg PO DAILY #90 caps 08/09/23 12/14/23 release paroxetine HCl 30 mg tablet 30 mg PO DAILY #90 tabs 08/09/23 12/14/23 ketoconazole 2 % topical cream 1 applic topical DAILY #120 grams 10/15/23 12/14/23 amlodipine 10 mg tablet 10 mg PO DAILY #90 tabs 10/25/23 12/14/23 atorvastatin 20 mg tablet 20 mg PO QHS #90 tabs 10/25/23 12/14/23 insulin glargine 100 unit/mL (3 30 unit (0.3 mL) subcut QHS #15 mL 10/25/23 12/14/23 mL) subcutaneous pen (Lantus Solostar U-100 Insulin) blood-glucose sensor (FreeStyle #1 ea 12/14/23 12/14/23 Eh 3 Sensor device) losartan 100 1 tab PO DAILY #90 tabs 12/14/23 12/14/23 mg-hydrochlorothiazide 25 mg tablet (Hyzaar) methylphenidate HCl 20 mg tablet 20 mg PO DAILY #28 tabs 12/14/23 12/14/23 methylphenidate HCl 20 mg tablet 20 mg PO DAILY #28 tabs 12/14/23 12/14/23 methylphenidate HCl 20 mg tablet 20 mg PO DAILY PRN ADD #28 tabs 12/14/23 12/14/23 (Ritalin) methylphenidate HCl 27 mg 27 mg PO DAILY #28 tabs 12/14/23 12/14/23 tablet,extended release 24 hr methylphenidate HCl 27 mg 27 mg PO QAM #28 tabs 12/14/23 12/14/23 tablet,extended release 24 hr methylphenidate HCl 27 mg 27 mg PO QAM #28 tabs 12/14/23 12/14/23 tablet,extended release 24 hr Previous Rx's ?Medication ?Instructions ?Recorded sildenafil 100 mg tablet 100 mg PO DAILY PRN sexual 06/19/19 activity #14 tabs pen needle, diabetic 32 gauge x #100 ea 04/29/20 (BD Ultra-Fine Tuyet Pen Needle) blood sugar diagnostic #100 ea 06/27/22 fluticasone propionate 50 1 spray intranasal BID #18.2 mL 06/27/22 mcg/actuation nasal spray,suspension (Flonase Allergy Relief) lancets (Soft Touch Lancets) #200 ea 06/27/22 empagliflozin 25 mg tablet 25 mg PO QAM #90 tabs 01/30/23 (Jardiance) insulin aspart U-100 100 unit/mL See Rx Instructions subcut TID #15 01/30/23 (3 mL) subcutaneous pen (Novolog mL FlexPen U-100 Insulin aspart) metformin 500 mg tablet See Rx Instructions .Route 01/30/23 .COMPLEX #180 tabs omeprazole 20 mg capsule,delayed 20 mg PO DAILY #90 caps 08/09/23 release paroxetine HCl 30 mg tablet 30 mg PO DAILY #90 tabs 08/09/23 ketoconazole 2 % topical cream 1 applic topical DAILY #120 grams 10/15/23 amlodipine 10 mg tablet 10 mg PO DAILY #90 tabs 10/25/23 atorvastatin 20 mg tablet 20 mg PO QHS #90 tabs 10/25/23 insulin glargine 100 unit/mL (3 30 unit (0.3 mL) subcut QHS #15 mL 10/25/23 mL) subcutaneous pen (Lantus Solostar U-100 Insulin) blood-glucose sensor (FreeStyle #1 ea 12/14/23 Eh 3 Sensor device) losartan 100 1 tab PO DAILY #90 tabs 12/14/23 mg-hydrochlorothiazide 25 mg tablet (Hyzaar) methylphenidate HCl 20 mg tablet 20 mg PO DAILY #28 tabs 12/14/23 methylphenidate HCl 20 mg tablet 20 mg PO DAILY #28 tabs 12/14/23 methylphenidate HCl 20 mg tablet 20 mg PO DAILY PRN ADD #28 tabs 12/14/23 (Ritalin) methylphenidate HCl 27 mg 27 mg PO DAILY #28 tabs 12/14/23 tablet,extended release 24 hr methylphenidate HCl 27 mg 27 mg PO QAM #28 tabs 12/14/23 tablet,extended release 24 hr methylphenidate HCl 27 mg 27 mg PO QAM #28 tabs 12/14/23 tablet,extended release 24 hr Allergies Allergy/AdvReac Type Severity Reaction Status Date / Time enviromental Allergy Intermediate chest Uncoded 01/21/24 18:17 tightness, dizzy, itchy watery eyes/nose cats claw Allergy Mild Determined Uncoded 01/21/24 18:17 through testing General Stated Complaint: Orthopedic WILLOW: 3 Review of Systems Narrative: See HPI Exam Const General: cooperative, healthy appearing, comfortable, no acute distress, well developed and well groomed Nutritional Appearance: average body habitus Orientation: alert and oriented x3 Resp Effort & Inspection: normal respiratory effort and able to speak in complete sentences Extrem Right lower extremity: normal to inspection, full ROM and normal capillary refill Left lower extremity: full ROM, normal capillary refill, no joint enlargement, knee Details: normal to inspection, ankle Details: normal to inspection and foot Details: normal capillary refill, normal to inspection, tenderness Location: of the dorsal foot (midfoot, no point tenderness), toes with normal ROM, no edema, vascular exam Details: dorsalis pedis pulse present and other (Neuropathy unchanged from baseline); no abrasions, no lacerations, no ecchymosis, no crepitus, no foreign bodies and no puncture wound Course Vital Signs Vital signs: Vital Signs Temperature 36.9 C 01/21/24 18:14 Pulse 63 01/21/24 18:14 Respiratory Rate 14 01/21/24 18:14 Blood Pressure 166/82 H 01/21/24 18:14 Pulse Oximetry 97 01/21/24 18:14 Temperature 36.9 C 01/21/24 18:14 Temperature Source Oral 01/21/24 18:14 Pulse 63 01/21/24 18:14 Respiratory Rate 14 01/21/24 18:14 Respiratory Effort Normal 01/21/24 19:33 Blood Pressure 166/82 H 01/21/24 18:14 Blood Pressure Position Sitting 01/21/24 18:14 Pulse Oximetry 97 01/21/24 18:14 Oxygen Delivery Method Room Air 01/21/24 18:14 Oxygen Flow Rate 0 01/21/24 18:14 Pain Level 7 01/21/24 18:14 Medical Decision Making Imaging Data Radiologic Study: Radiologist's impression: Accession No. : [id number] Creator : SRUTHI MARQUEZ Dictator : SRUTHI MARQUEZ Zipper Trimmer Hand : Cinder Block Maker : SRUTHI MARQUEZ Approver2 : Report Date : 01/21/2024 19:25:19 Exam(s) XR FOOT RT COMPLETE EXAM: XR FOOT RT COMPLETE CLINICAL HISTORY: Nontraumatic pain to dorsum of foot. TECHNIQUE: 2D digital imaging was performed of the right foot. Three images were obtained. AP, oblique and lateral views were obtained. COMPARISON: No exams were available for comparison FINDINGS: BONES: No acute fracture is present. No bony destructive lesion is seen. There is a small plantar calcaneal spur. Soft tissue calcifications are seen posterior to the calcaneus. These may be associated with the Achilles tendon. JOINTS: No dislocation present. Hammertoe deformities of the 2nd through 5th toes are noted. The joint spaces are well maintained. SOFT TISSUE: Normal. IMPRESSION: No acute abnormality. DATA REPOSITORY: RADIATION DOSE DELIVERED: Quality:SDOH Health Related Social Needs: No Data to Display PFSH All Active Problems (Updated 01/21/24 @ 19:41 by Jaky Acuna) Foot pain, right (Acute) Nail dystrophy (Acute) Paresthesias (Acute) Onychomycosis (Acute) Diabetes mellitus, type II, insulin dependent (Acute) Shoulder arthritis (Acute) Family history of prostate cancer in father (Chronic) Father of disease Osteoarthritis of right knee (Acute) Diplopia (Acute) With visual field defects [facility] Dr. 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 Macular edema present both eyes. Psoriasis (Chronic) GERD without esophagitis (Acute) Erectile dysfunction (Acute) Depressive disorder (Chronic) ADD (attention deficit disorder) (Acute) Hyperlipidemia (Acute) Hypertension (Chronic) Medical History Basal cell carcinoma Surgical History Benign neoplasm of skin of forehead 1952 - Refugee status - [facility] History of tonsillectomy (~1964) [facility] History of hernia repair (~2021) [facility] History of Mohs micrographic surgery for skin cancer 04/26/2022 From [facility] Gianluca Manning MD (basal cell carcinoma) Family History Mother Skin cancer Anxiety Depression Hypertension Social History Smoking/Tobacco Use Status: Current-Occasional Smokeless tobacco user: other (cigars once a month) Smoking risk assessment performed?: Yes Alcohol Intake: current Alcohol type: hard liquor Drug use: Never Substance use type: does not use Adopted: No Caregiver/Support person: No Foster care: No Household members: spouse, children and other Details: mother Housing: house Number of Children: 3 Education Level: other Details: Bachelors degree Do you need help understanding health information?: Never 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 Pets and animals: Yes Pets and animals: cat(s) and dog(s) Sexually active: Yes Do you think of yourself as: straight/heterosexual Current gender identity: male What is your relationship status?: How often do you talk on the phone with friends or family?: three or more times per week How often do you get together with friends or relatives?: three or more times per week Do you belong to any clubs or organized social groups?: no Panel score (0-1 are the most socially isolated patients): 2 What type of physical activity do you participate in: other Details: hiking Duration: 30-45 minutes/day Frequency: 5-6 times per week Doreen/Anglican: Scientology Special doreen needs: No Seatbelt use: always Helmet use: Yes Drive intox or ride w/intox water tanker driver: No PAWSS Have you Been Recently Intoxicated or Drunk Within the Last 30 days?: No Have you Ever Experienced Previous Episodes of Alcohol Withdrawal?: No Have you ever Experienced Withdrawal Seizures?: No Have you ever Experienced Delirium Tremens(DT)s?: No Have you ever undergone Alcohol Rehabilitation Treatment (i.e, inpt ot outpatient treatment programs)?: No Have you ever Experienced Blackouts?: No Have you ever Combined Alcohol with other Downers within the last 90 days?: No Have you ever Combined Alcohol with any other Substance of Abuse during the last 90 days?: No Positive Blood Alcohol level on Presentation? [PCS.BAL]: No Evidence of Increased Autonomic Activity (i.e. HR>120, tremor, sweating, agitation, nausea)?: No Result: 0
== END 2024-01-21 19:47 | disposition home or self-care (01) ==
PROVIDERS: Emergency Provider Nurse Practitioner Family; PCP Family Medicine
DX: M79.671 Pain in right foot (principal)
CPT/HCPCS: 99283; 73630; 99284

== ENCOUNTER 2024-03-27 08:12 | Emergency (ER) | payer BC, SELFPAY ==
[2024-03-27 08:12] VITALS: BP 171/83; PULSE 54; RESP 15; TEMP 36.5; O2SAT 98
--- NOTE | 2024-03-27 08:29 | ED.GENADUL_ITS ---
Discharge Plan Disposition Patient Disposition: Home Condition: Stable Discharge Details Clinical Impression: Sprain of right shoulder Primary Care Provider: Marquise Moyer ED Provider: Juanito Mera Home Meds and New Rx's Prescriptions: Continued sildenafil 100 mg tablet 100 mg PO DAILY PRN (Reason: sexual activity) Qty: 14 0RF Rx Instructions: administer 30 minutes to 4 hours before activity (DME) blood sugar diagnostic Strip See Rx Instructions .ROUTE .MEDSUPPLY Qty: 100 12RF Rx Instructions: As directed daily to maintain A1C less than 7; Dx: E11.43 fluticasone propionate [Flonase Allergy Relief] 50 mcg/actuation spray,suspension 1 spray ELEANOR BID Qty: 18.2 6RF Rx Instructions: administer into each nostril (DME) lancets [Soft Touch Lancets] Misc See Rx Instructions .ROUTE .MEDSUPPLY Qty: 200 6RF Rx Instructions: As directed QD to maintain A1C less than 7 paroxetine HCl 30 mg tablet 30 mg PO DAILY Qty: 90 3RF omeprazole 20 mg capsule,delayed release(DR/EC) 20 mg PO DAILY Qty: 90 3RF ketoconazole 2 % cream 1 applic topical DAILY Qty: 120 6RF Rx Instructions: Apply to toenails once daily (DME) pen needle, diabetic [BD Ultra-Fine Tuyet Pen Needle] 32 gauge x 5/32 needle See Rx Instructions .ROUTE .MEDSUPPLY Qty: 100 6RF Rx Instructions: USE 1 daily Dx: E11.43 insulin aspart U-100 [Novolog FlexPen U-100 Insulin] 100 unit/mL (3 mL) insulin pen See Rx Instructions subcut TID Qty: 15 6RF Rx Instructions: 0 units less than 139; 2 units 140-180; 3 units 181-240; 4 units 241-300; 6 units 301-350; 8 units 351-400; call if over 400 subcutaneously three times a day; metformin 500 mg tablet See Rx Instructions .ROUTE .COMPLEX Qty: 180 3RF Dose Instruction: TAKE 2 TABLETS BY MOUTH TWICE DAILY Rx Instructions: TAKE 2 TABLETS BY MOUTH TWICE DAILY Jardiance 25 mg tablet 25 mg PO QAM Qty: 90 3RF amlodipine 10 mg tablet 10 mg PO DAILY Qty: 90 3RF atorvastatin 20 mg tablet 20 mg PO QHS Qty: 90 3RF Lantus Solostar U-100 Insulin 100 unit/mL (3 mL) insulin pen 30 unit subcut QHS Qty: 15 3RF Rx Instructions: Increase dose by one unit each week if fasting blood sugars are higher than 120 losartan-hydrochlorothiazide [Hyzaar] 100-25 mg tablet 1 tab PO DAILY Qty: 90 3RF (DME) FreeStyle Eh 3 Sensor Device See Rx Instructions .Route Qty: 1 6RF Rx Instructions: Dx: E11.65; check QID and prn to keep HbA1c less than 6.5% methylphenidate HCl [Ritalin] 20 mg tablet 20 mg PO DAILY MDD 56 mg PRN (Reason: ADD) Qty: 28 0RF Rx Instructions: Take if needed at the end of the day if 27 mg dose wears off methylphenidate HCl 27 mg tablet extended release 24hr 27 mg PO QAM MDD 47 mg Qty: 28 0RF methylphenidate HCl 27 mg tablet extended release 24hr 27 mg PO QAM MDD 47 mg Qty: 28 0RF methylphenidate HCl 27 mg tablet extended release 24hr 27 mg PO DAILY MDD 47 mg Qty: 28 0RF aspirin [Adult Low Dose Aspirin] 81 mg tablet,delayed release (DR/EC) 81 mg PO DAILY tacrolimus 0.1 % ointment 1 applic topical BID betamethasone, augmented 0.05 % ointment 1 applic topical BID PRN (Reason: psoriasis) Rx Instructions: Apply to affected areas twice daily for 2 weeks. Take 1 week off, then repeat cycle as needed methylphenidate HCl 20 mg tablet 20 mg PO DAILY MDD 47 mg PRN Rx Instructions: Take after ER tablet wears off, if needed methylphenidate HCl 20 mg tablet 20 mg PO DAILY MDD 47 mg PRN Rx Instructions: Take after the ER tablet wears off, if needed Discharge Instructions Additional Instructions: Your x-ray did not show any broken bones. I suspect you sprained your AC joint. If your stomach pain in 1 to 2 weeks follow-up with your primary care provider. Make sure you are trying to move your shoulder several times a day and take your arm out of the sling. If you feel more ill or have severe worsening pain return to the emergency department for reevaluation. HPI General Mode of arrival: ambulatory . Date/Time Provider Initiated Documentation: 03/27/24 08:19 . Limitations to Documentation: no limitations . Information obtained by: patient . History of Present Illness 64 year old M presents to the emergency department with the chief complaint of right shoulder pain s/p fall, described as moderate, Quality is described as aching, and is localized to the right and upper extremity. Patient started experiencing this day(s) (1) and it has been constant. Rest improves symptom(s), Mo vement worsens symptoms . Patient notes no other symptoms.. Patient did receive the following treatments prior to arrival, none Related Data Home Medications ?Medication ?Instructions ?Recorded ?Confirmed aspirin 81 mg tablet,delayed 81 mg PO DAILY 06/12/19 03/27/24 release (Adult Low Dose Aspirin) sildenafil 100 mg tablet 100 mg PO DAILY PRN sexual 06/19/19 03/27/24 activity #14 tabs pen needle, diabetic 32 gauge x #100 ea 04/29/20 03/27/24 (BD Ultra-Fine Tuyet Pen Needle) betamethasone, augmented 0.05 % 1 applic topical BID PRN psoriasis 05/15/22 03/27/24 topical ointment tacrolimus 0.1 % topical ointment 1 applic topical BID psoriasis 05/15/22 03/27/24 blood sugar diagnostic #100 ea 06/27/22 03/27/24 fluticasone propionate 50 1 spray intranasal BID #18.2 mL 06/27/22 03/27/24 mcg/actuation nasal spray,suspension (Flonase Allergy Relief) lancets (Soft Touch Lancets) #200 ea 06/27/22 03/27/24 empagliflozin 25 mg tablet 25 mg PO QAM #90 tabs 01/30/23 03/27/24 (Jardiance) insulin aspart U-100 100 unit/mL See Rx Instructions subcut TID #15 01/30/23 03/27/24 (3 mL) subcutaneous pen (Novolog mL FlexPen U-100 Insulin aspart) metformin 500 mg tablet See Rx Instructions .Route 01/30/23 03/27/24 .COMPLEX #180 tabs omeprazole 20 mg capsule,delayed 20 mg PO DAILY #90 caps 08/09/23 03/27/24 release paroxetine HCl 30 mg tablet 30 mg PO DAILY #90 tabs 08/09/23 03/27/24 ketoconazole 2 % topical cream 1 applic topical DAILY #120 grams 10/15/23 amlodipine 10 mg tablet 10 mg PO DAILY #90 tabs 10/25/23 03/27/24 atorvastatin 20 mg tablet 20 mg PO QHS #90 tabs 10/25/23 03/27/24 insulin glargine 100 unit/mL (3 30 unit (0.3 mL) subcut QHS #15 mL 10/25/23 03/27/24 mL) subcutaneous pen (Lantus Solostar U-100 Insulin) blood-glucose sensor (FreeStyle #1 ea 12/14/23 03/27/24 Eh 3 Sensor device) losartan 100 1 tab PO DAILY #90 tabs 12/14/23 03/27/24 mg-hydrochlorothiazide 25 mg tablet (Hyzaar) methylphenidate HCl 20 mg tablet 20 mg PO DAILY PRN ADD #28 tabs 12/14/23 03/27/24 (Ritalin) methylphenidate HCl 27 mg 27 mg PO DAILY #28 tabs 12/14/23 03/27/24 tablet,extended release 24 hr methylphenidate HCl 27 mg 27 mg PO QAM #28 tabs 12/14/23 03/27/24 tablet,extended release 24 hr methylphenidate HCl 27 mg 27 mg PO QAM #28 tabs 12/14/23 03/27/24 tablet,extended release 24 hr methylphenidate HCl 20 mg tablet 20 mg PO DAILY PRN 03/27/24 03/27/24 methylphenidate HCl 20 mg tablet 20 mg PO DAILY PRN 03/27/24 03/27/24 Previous Rx's ?Medication ?Instructions ?Recorded sildenafil 100 mg tablet 100 mg PO DAILY PRN sexual 06/19/19 activity #14 tabs pen needle, diabetic 32 gauge x #100 ea 04/29/20 (BD Ultra-Fine Tuyet Pen Needle) blood sugar diagnostic #100 ea 06/27/22 fluticasone propionate 50 1 spray intranasal BID #18.2 mL 06/27/22 mcg/actuation nasal spray,suspension (Flonase Allergy Relief) lancets (Soft Touch Lancets) #200 ea 06/27/22 empagliflozin 25 mg tablet 25 mg PO QAM #90 tabs 01/30/23 (Jardiance) insulin aspart U-100 100 unit/mL See Rx Instructions subcut TID #15 01/30/23 (3 mL) subcutaneous pen (Novolog mL FlexPen U-100 Insulin aspart) metformin 500 mg tablet See Rx Instructions .Route 01/30/23 .COMPLEX #180 tabs omeprazole 20 mg capsule,delayed 20 mg PO DAILY #90 caps 08/09/23 release paroxetine HCl 30 mg tablet 30 mg PO DAILY #90 tabs 08/09/23 ketoconazole 2 % topical cream 1 applic topical DAILY #120 grams 10/15/23 amlodipine 10 mg tablet 10 mg PO DAILY #90 tabs 10/25/23 atorvastatin 20 mg tablet 20 mg PO QHS #90 tabs 10/25/23 insulin glargine 100 unit/mL (3 30 unit (0.3 mL) subcut QHS #15 mL 10/25/23 mL) subcutaneous pen (Lantus Solostar U-100 Insulin) blood-glucose sensor (FreeStyle #1 ea 12/14/23 Eh 3 Sensor device) losartan 100 1 tab PO DAILY #90 tabs 12/14/23 mg-hydrochlorothiazide 25 mg tablet (Hyzaar) methylphenidate HCl 20 mg tablet 20 mg PO DAILY PRN ADD #28 tabs 12/14/23 (Ritalin) methylphenidate HCl 27 mg 27 mg PO DAILY #28 tabs 12/14/23 tablet,extended release 24 hr methylphenidate HCl 27 mg 27 mg PO QAM #28 tabs 12/14/23 tablet,extended release 24 hr methylphenidate HCl 27 mg 27 mg PO QAM #28 tabs 12/14/23 tablet,extended release 24 hr Allergies Allergy/AdvReac Type Severity Reaction Status Date / Time cat dander Allergy Intermediate congestion Verified 03/27/24 08:19 grass pollen Allergy Intermediate runny Verified 03/27/24 08:19 nose, sinus blockage General Stated Complaint: Orthopedic WILLOW: 4 Review of Systems All systems reviewed & are unremarkable except as noted in HPI and below Constitutional Constitutional: Denies chills, Denies fever(s) and Denies weakness Cardiovascular Cardiovascular: Denies chest pain and Denies dyspnea Respiratory Respiratory: Denies cough and Denies dyspnea Gastrointestinal Gastrointestinal: Denies abdominal pain, Denies nausea and Denies vomiting Musculoskeletal Musculoskeletal: Reports arthralgias and Denies joint swelling Neurologic Neurologic: Denies weakness Psychiatric Psychiatric: Denies depression Exam Const General: no acute distress Orientation: alert HENMT Head: normal to inspection Ears: external ears normal General nose exam: external nose normal Mouth: moist mucous membranes Eyes General: appearance normal, both eyes and all related structures Neck Neck: normal visual inspection, full ROM and nontender Resp Effort & Inspection: normal respiratory effort and able to speak in complete sentences Cardio Rate: regular rate Skin General skin exam: no rashes or lesions noted Neuro General: patient alert and patient oriented x3 Extrem General: full ROM and capillary refill normal Psych Mental Status: mental status grossly normal Course Vital Signs Vital signs: Vital Signs Temperature 36.5 C 03/27/24 08:12 Pulse 54 L 03/27/24 08:12 Respiratory Rate 15 03/27/24 08:12 Blood Pressure 171/83 H 03/27/24 08:12 Pulse Oximetry 98 03/27/24 08:12 Temperature 36.5 C 03/27/24 08:12 Temperature Source Oral 03/27/24 08:12 Pulse 54 L 03/27/24 08:12 Respiratory Rate 15 03/27/24 08:12 Blood Pressure 171/83 H 03/27/24 08:12 Blood Pressure Position Sitting 03/27/24 08:12 Pulse Oximetry 98 03/27/24 08:12 Oxygen Delivery Method Room Air 03/27/24 08:12 Oxygen Flow Rate 0 03/27/24 08:12 Pain Level 6 03/27/24 08:12 Medical Decision Making 64-year-old male comes in with right shoulder pain after he fell yesterday. He says he was at work and missed a step causing him to fall from a standing height onto his right shoulder. He did not hit his head or loss of consciousness. He had continued pain this morning so came here for an evaluation. He denies any headaches, neck pain, back pain, chest or abdomen pain. He has tenderness over the right AC joint. He does have full range of motion of the shoulder but does have pain with range of motion. Intact distal sensation and pulses. Suspect AC joint sprain or contusion, will obtain x-rays to evaluate for possible fracture. X-ray shows no fracture. Does have AC joint arthritis. I suspect an AC joint sprain as well. He is stable, I advised to follow-up with his PCP if pain is not improving over 1 to 2 weeks, return precautions given Differential Diagnosis Differential Diagnosis: Fracture, sprain, AC joint injury Quality:SDOH Health Related Social Needs: No Data to Display PFSH All Active Problems (Updated 03/27/24 @ 09:45 by Juanito Mera MD) Sprain of right shoulder (Acute) Pes cavus of right foot (Acute) Pain, joint, foot, right (Acute) Nail dystrophy (Acute) Paresthesias (Acute) Onychomycosis (Acute) Diabetes mellitus, type II, insulin dependent (Acute) Shoulder arthritis (Acute) Family history of prostate cancer in father (Chronic) Father of disease Osteoarthritis of right knee (Acute) Diplopia (Acute) With visual field defects [facility] Dr. 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 Macular edema present both eyes. Psoriasis (Chronic) GERD without esophagitis (Acute) Erectile dysfunction (Acute) Depressive disorder (Chronic) ADD (attention deficit disorder) (Acute) Hyperlipidemia (Acute) Hypertension (Chronic) Medical History Basal cell carcinoma Surgical History Benign neoplasm of skin of forehead 1952 - Refugee status - [facility] History of tonsillectomy (~1964) [facility] History of hernia repair (~2021) [facility] History of Mohs micrographic surgery for skin cancer 04/26/2022 From [facility] (at [facility]) Gianluca Manning MD (basal cell carcinoma) Family History Mother Skin cancer Anxiety Depression Hypertension Social History Smoking/Tobacco Use Status: Former Tobacco Use Smokeless tobacco user: other (cigars once a month) Smoking risk assessment performed?: Yes Alcohol Intake: current Alcohol type: hard liquor Drug use: Never Substance use type: does not use Adopted: No Caregiver/Support person: No Foster care: No Household members: spouse, children and other Details: mother Housing: house Number of Children: 3 Education Level: other Details: Bachelors degree Do you need help understanding health information?: Never 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 Pets and animals: Yes Pets and animals: cat(s) and dog(s) Sexually active: Yes Do you think of yourself as: straight/heterosexual Current gender identity: male What is your relationship status?: How often do you talk on the phone with friends or family?: three or more times per week How often do you get together with friends or relatives?: three or more times per week Do you belong to any clubs or organized social groups?: no Panel score (0-1 are the most socially isolated patients): 2 What type of physical activity do you participate in: other Details: hiking Duration: 30-45 minutes/day Frequency: 5-6 times per week Doreen/Alevism: Religion Special doreen needs: No Seatbelt use: always Helmet use: Yes Drive intox or ride w/intox chair car driver: No
--- NOTE | 2024-03-27 08:55 | DI.RAD_ITS ---
Exam(s) XR SHOULDER RT COMPLETE 2+V EXAM: XR SHOULDER RT COMPLETE 2+V CLINICAL HISTORY: pain s/p fall. TECHNIQUE: 2D digital imaging was performed. Five views. COMPARISON: No exams were available for comparison FINDINGS: BONES: No acute fracture is present. No bony destructive lesion is seen. JOINTS: No dislocation present. Arm there is moderate spurring at the AC joint. There is also spurr ing at the greater tuberosity and tip of the acromion. Glenohumeral joint space is maintained. Ther e is mild spurring at the glenoid. SOFT TISSUE: Normal. IMPRESSION: No acute abnormality. Degenerative change greatest of the AC joint. DATA REPOSITORY: RADIATION DOSE DELIVERED:
[2024-03-27 10:09] VITALS: BP 173/85; PULSE 58; RESP 18; O2SAT 96
== END 2024-03-27 10:10 | disposition home or self-care (01) ==
PROVIDERS: Emergency Provider Emergency Medicine; PCP Family Medicine
DX: S43.401A Unspecified sprain of right shoulder joint, initial encounter (principal); E11.311 Type 2 diabetes mellitus with unspecified diabetic retinopathy with macular edema; I10 Essential (primary) hypertension; E78.5 Hyperlipidemia, unspecified; Z87.891 Personal history of nicotine dependence; W17.89XA Other fall from one level to another, initial encounter; Y93.89 Activity, other specified; Y92.89 Other specified places as the place of occurrence of the external cause; Y99.0 Civilian activity done for income or pay
CPT/HCPCS: 99283; 73030

== ENCOUNTER 2024-08-03 18:54 | Emergency (ER) | payer BC, SELFPAY ==
[2024-08-03 18:56] VITALS: BP 155/79; PULSE 86; RESP 14; TEMP 36.6; O2SAT 96
--- NOTE | 2024-08-03 19:18 | ED.GENADUL_ITS ---
Discharge Plan Disposition Patient Disposition: Home Condition: Stable Discharge Details Clinical Impression: Laceration of left ring finger Primary Care Provider: Marquise Moyer ED Provider: Juanito Mera Home Meds and New Rx's Prescriptions: Continued sildenafil 100 mg tablet 100 mg PO DAILY PRN (Reason: sexual activity) Qty: 14 0RF Rx Instructions: administer 30 minutes to 4 hours before activity fluticasone propionate [Flonase Allergy Relief] 50 mcg/actuation spray,suspension 1 spray ELEANOR BID Qty: 18.2 6RF Rx Instructions: administer into each nostril (DME) lancets [Soft Touch Lancets] Misc See Rx Instructions .ROUTE .MEDSUPPLY Qty: 200 6RF Rx Instructions: As directed QD to maintain A1C less than 7 paroxetine HCl 30 mg tablet 30 mg PO DAILY Qty: 90 3RF losartan-hydrochlorothiazide [Hyzaar] 100-25 mg tablet 1 tab PO DAILY Qty: 90 3RF metformin 500 mg tablet See Rx Instructions .ROUTE .COMPLEX Qty: 180 3RF Dose Instruction: TAKE 2 TABLETS BY MOUTH TWICE DAILY Rx Instructions: TAKE 2 TABLETS BY MOUTH TWICE DAILY (DME) pen needle, diabetic [BD Ultra-Fine Tuyet Pen Needle] 32 gauge x 5/32 needle See Rx Instructions .ROUTE .MEDSUPPLY Qty: 100 6RF Rx Instructions: USE 1 daily Dx: E11.43 insulin aspart U-100 [Novolog FlexPen U-100 Insulin] 100 unit/mL (3 mL) insulin pen See Rx Instructions subcut TID Qty: 15 6RF Rx Instructions: 0 units less than 139; 2 units 140-180; 3 units 181-240; 4 units 241-300; 6 units 301-350; 8 units 351-400; call if over 400 subcutaneously three times a day; amlodipine 10 mg tablet 10 mg PO DAILY Qty: 90 3RF atorvastatin 20 mg tablet 20 mg PO QHS Qty: 90 3RF (DME) Dexcom G7 Sensor Device See Rx Instructions .Route Qty: 9 3RF Rx Instructions: As directed doxycycline hyclate 100 mg capsule 100 mg PO BID Qty: 20 0RF methylprednisolone [Medrol (Adriano)] 4 mg tablets,dose pack See Rx Instructions PO PER PKG DIR Qty: 21 0RF Rx Instructions: PO PER PKG DIR for 6 days albuterol sulfate 90 mcg/actuation HFA aerosol inhaler 2 puff inhalation QID Qty: 8.5 0RF guaifenesin [Mucinex] 1,200 mg tablet extended release 12hr 1,200 mg PO BID Qty: 20 0RF aspirin [Adult Low Dose Aspirin] 81 mg tablet,delayed release (DR/EC) 81 mg PO DAILY betamethasone, augmented 0.05 % ointment 1 applic topical BID PRN (Reason: psoriasis) Rx Instructions: Apply to affected areas twice daily for 2 weeks. Take 1 week off, then repeat cycle as needed Jardiance 25 mg tablet 25 mg PO QAM Qty: 90 3RF Lantus Solostar U-100 Insulin 100 unit/mL (3 mL) insulin pen 30 unit subcut QHS Qty: 15 3RF Rx Instructions: Increase dose by one unit each week if fasting blood sugars are higher than 120 (DME) Dexcom G7 Fun House Operator Misc See Rx Instructions .Route Qty: 1 0RF Rx Instructions: As directed omeprazole 20 mg capsule,delayed release(DR/EC) 20 mg PO DAILY Qty: 90 3RF Discontinued ketoconazole 2 % cream 1 applic topical DAILY Qty: 120 6RF Rx Instructions: Apply to toenails once daily No Action methylphenidate HCl 20 mg tablet 20 mg PO DAILY MDD 47 mg PRN (Reason: ADD) Qty: 28 0RF Rx Instructions: Take after ER tablet wears off, if needed methylphenidate HCl [Ritalin] 20 mg tablet 20 mg PO DAILY MDD 47 mg PRN (Reason: ADD) Qty: 28 0RF Rx Instructions: Take if needed at the end of the day if 27 mg dose wears off methylphenidate HCl 20 mg tablet 20 mg PO DAILY MDD 47 mg PRN (Reason: ADD) Qty: 28 0RF Rx Instructions: Take after the ER tablet wears off, if needed methylphenidate HCl 27 mg tablet extended release 24hr 27 mg PO QAM MDD 47 mg Qty: 28 0RF methylphenidate HCl 27 mg tablet extended release 24hr 27 mg PO QAM MDD 47 mg Qty: 28 0RF methylphenidate HCl 27 mg tablet extended release 24hr 27 mg PO DAILY MDD 47 mg Qty: 28 0RF Discharge Instructions Instructions: Laceration Repair With Stitches ED Additional Instructions: Return in 7 to 10 days for evaluation for suture removal. Return sooner if you have signs of infection such as spreading redness to the finger, severe pain or yellow-white discharge from the wound. HPI General Mode of arrival: ambulatory . Date/Time Provider Initiated Documentation: 08/03/24 18:55 . Limitations to Documentation: no limitations . Information obtained by: patient . History of Present Illness 64 year old M presents to the emergency department with the chief complaint of left ring finger lac, described as mild, Patient started experiencing this hour(s) (10) and it has been constant. No relieving factors improve symptom(s), No exacerbating factors reported . Patient notes no other symptoms.. Patient did receive the following treatments prior to arrival, none Related Data Home Medications ?Medication ?Instructions ?Recorded ?Confirmed aspirin 81 mg tablet,delayed 81 mg PO DAILY 06/12/19 0 08/03/24 release (Adult Low Dose Aspirin) sildenafil 100 mg tablet 100 mg PO DAILY PRN sexual 0 06/19/19 08/03/24 activity #14 tabs pen needle, diabetic 32 gauge x #100 ea 04/29/2008/03 (BD Ultra-Fine Tuyet Pen Needle) betamethasone, augmented 0.05 % 1 applic topical BID P RN psoriasis 05/15/22 08/03/24 topical ointment fluticasone propionate 50 1 spray intranasal BID #18.2 mL 06/27/22 08/03/24 mcg/actuation nasal spray,suspension (Flonase Allergy Relief) lancets (Soft Touch Lancets) #200 ea 06/27/22 08/03/24 insulin aspart U-100 100 unit/mL See Rx Instructions s ubcut TID #15 01/30/23 08/03/24 (3 mL) subcutaneous pen (Novolog mL FlexPen U-100 Insulin aspart) paroxetine HCl 30 mg tablet 30 mg PO DAILY #90 tabs 08/03/24 amlodipine 10 mg tablet 10 mg PO DAILY #90 tabs 09/0 07/1208/03/24 atorvastatin 20 mg tablet 20 mg PO QHS #90 tabs 08/03/24 losartan 100 1 tab PO DAILY #90 tabs 03/2208/03/24 mg-hydrochlorothiazide 25 mg tablet (Hyzaar) metformin 500 mg tablet See Rx Instructions .Route 0 04/08/24 08/03/24 .COMPLEX #180 tabs empagliflozin 25 mg tablet 25 mg PO QAM #90 tabs 04/1808/03/24 (Jardiance) blood-glucose sensor (Dexcom G7 #9 ea 07/07/24 5 Sensor device) insulin glargine 100 unit/mL (3 30 unit (0.3 mL) subcu t QHS #15 mL 07/07/24 08/03/24 mL) subcutaneous pen (Lantus Solostar U-100 Insulin) methylphenidate HCl 20 mg tablet 20 mg PO DAILY PRN AD D #28 tabs 07/07/24 08/03/24 methylphenidate HCl 20 mg tablet 20 mg PO DAILY PRN AD D #28 tabs 07/07/24 08/03/24 methylphenidate HCl 20 mg tablet 20 mg PO DAILY PRN AD D #28 tabs 07/07/24 08/03/24 (Ritalin) methylphenidate HCl 27 mg 27 mg PO DAILY #28 tabs 06/1908/03/24 tablet,extended release 24 hr methylphenidate HCl 27 mg 27 mg PO QAM #28 tabs 08/03/24 tablet,extended release 24 hr methylphenidate HCl 27 mg 27 mg PO QAM #28 tabs 08/03/24 tablet,extended release 24 hr blood-glucose,core extruder,cont #1 ea 07/10/24 08/03/24 (Dexcom G7 Fun House Operator) omeprazole 20 mg capsule,delayed 20 mg PO DAILY #90 ca ps 07/22/24 08/03/24 release albuterol sulfate 90 mcg/actuation 2 puff inhalation Q ID #8.5 grams 07/30/24 08/03/24 aerosol inhaler doxycycline hyclate 100 mg capsule 100 mg PO BID #20 c aps 07/30/24 08/03/24 guaifenesin 1,200 mg tablet, 1,200 mg PO BID #20 tabs 07/30/24 08/03/24 extended release 12 hr (Mucinex) methylprednisolone 4 mg tablets in See Rx Instructions PO PER PKG DIR 07/30/24 08/03/24 a dose pack (Medrol (Adriano)) #21 dose pk Previous Rx's ?Medication ?Instructions ?Recorded sildenafil 100 mg tablet 100 mg PO DAILY PRN sexual 0 06/19/19 activity #14 tabs pen needle, diabetic 32 gauge x #100 ea 04/29/20 (BD Ultra-Fine Tuyet Pen Needle) fluticasone propionate 50 1 spray intranasal BID #18.2 mL 06/27/22 mcg/actuation nasal spray,suspension (Flonase Allergy Relief) lancets (Soft Touch Lancets) #200 ea 06/27/22 insulin aspart U-100 100 unit/mL See Rx Instructions s ubcut TID #15 01/30/23 (3 mL) subcutaneous pen (Novolog mL FlexPen U-100 Insulin aspart) paroxetine HCl 30 mg tablet 30 mg PO DAILY #90 tabs amlodipine 10 mg tablet 10 mg PO DAILY #90 tabs 07/12 atorvastatin 20 mg tablet 20 mg PO QHS #90 tabs losartan 100 1 tab PO DAILY #90 tabs 03/22 10/13 mg-hydrochlorothiazide 25 mg tablet (Hyzaar) metformin 500 mg tablet See Rx Instructions .Route 0 04/08/24 .COMPLEX #180 tabs empagliflozin 25 mg tablet 25 mg PO QAM #90 tabs 04/18 (Jardiance) blood-glucose sensor (Dexcom G7 #9 ea 07/07/24 Sensor device) insulin glargine 100 unit/mL (3 30 unit (0.3 mL) subcu t QHS #15 mL 07/07/24 mL) subcutaneous pen (Lantus Solostar U-100 Insulin) methylphenidate HCl 20 mg tablet 20 mg PO DAILY PRN AD D #28 tabs 07/07/24 methylphenidate HCl 20 mg tablet 20 mg PO DAILY PRN AD D #28 tabs 07/07/24 methylphenidate HCl 20 mg tablet 20 mg PO DAILY PRN AD D #28 tabs 07/07/24 (Ritalin) methylphenidate HCl 27 mg 27 mg PO DAILY #28 tabs 06/19 11/13 tablet,extended release 24 hr methylphenidate HCl 27 mg 27 mg PO QAM #28 tabs tablet,extended release 24 hr methylphenidate HCl 27 mg 27 mg PO QAM #28 tabs tablet,extended release 24 hr blood-glucose,core extruder,cont #1 ea 07/10/24 (Dexcom G7 Fun House Operator) omeprazole 20 mg capsule,delayed 20 mg PO DAILY #90 ca ps 07/22/24 release albuterol sulfate 90 mcg/actuation 2 puff inhalation Q ID #8.5 grams 07/30/24 aerosol inhaler doxycycline hyclate 100 mg capsule 100 mg PO BID #20 c aps 07/30/24 guaifenesin 1,200 mg tablet, 1,200 mg PO BID #20 tabs 07/30/24 extended release 12 hr (Mucinex) methylprednisolone 4 mg tablets in See Rx Instructions PO PER PKG DIR 07/30/24 a dose pack (Medrol (Adriano)) #21 dose pk Allergies Allergy/AdvReac Type Severity Reaction Status Date / Time cat dander Allergy Intermediate congestion Verified 08/03/24 19:00 grass pollen Allergy Intermediate runny Verified 08/03/24 19:00 nose, sinus blockage General Stated Complaint: Laceration WILLOW: 4 Review of Systems All systems reviewed & are unremarkable except as noted in HPI and below Constitutional Constitutional: Denies fever(s) and Denies weakness Gastrointestinal Gastrointestinal: Denies vomiting Neurologic Neurologic: Denies weakness Exam Const General: no acute distress Orientation: alert [facility] Head: normal to inspection Ears: external ears normal General nose exam: external nose normal Mouth: moist mucous membranes Eyes General: appearance normal, both eyes and all related structures Neck Neck: normal visual inspection Resp Effort & Inspection: normal respiratory effort and able to speak in complete sentences Cardio Rate: regular rate Skin General skin exam: no rashes or lesions noted Neuro General: patient alert and patient oriented x3 Extrem General: full ROM and capillary refill normal Psych Mental Status: mental status grossly normal Course Vital Signs Vital signs: Vital Signs Temperature 36.6 C 08/03/24 18:56 Pulse 86 08/03/24 18:56 Respiratory Rate 14 08/03/24 18:56 Blood Pressure 155/79 H 08/03/24 18:56 Pulse Oximetry 96 08/03/24 18:56 Temperature 36.6 C 08/03/24 18:56 Temperature Source Oral 08/03/24 18:56 Pulse 86 08/03/24 18:56 Respiratory Rate 14 08/03/24 18:56 Blood Pressure 155/79 H 08/03/24 18:56 Pulse Oximetry 96 08/03/24 18:56 Oxygen Delivery Method Room Air 08/03/24 18:56 Oxygen Flow Rate 0 08/03/24 18:56 Pain Level 0 08/03/24 18:56 Procedure Laceration Laceration 1: Patient Consented: Verbally Site: hand Side (If applicable): left Description: linear Depth: simple, single layer Local anesthetic: Lidocaine 1% Amount of anesthesia used (mL): 6 Pre-repair:: wound explored and irrigated extensively Skin layer closed with: nylon Suture size: 5-0 Number of sutures:: 5 Technique: simple, interrupted Medical Decision Making 64-year-old male comes in after he cut his finger on a sorority at his house by accident this morning. He did not fall or sustain other injuries. He has a 2- 1/2 cm superficial laceration that runs vertically on the ulnar surface of his distal left pinky. It ends on the fat pad of the finger. He has full range of motion in all joints. Intact sensation and cap refill. I will close the wound with sutures. He has no bony tenderness and mechanism is inconsistent with either foreign body or fractures do not feel x-rays are indicated. Close the wound without incident or complications. 5 sutures total. He had a Tdap in 2021. He is stable for discharge and will return in 7 to 10 days for suture removal Differential Diagnosis Differential Diagnosis: lac, abrasion PFSH All Active Problems (Updated 08/03/24 @ 19:33 by Juanito Mera MD) Laceration of left ring finger (Acute) Bronchitis (Acute) Pes cavus of right foot (Acute) Pain, joint, foot, right (Acute) Nail dystrophy (Acute) Paresthesias (Acute) Onychomycosis (Acute) Diabetes mellitus, type II, insulin dependent (Acute) Shoulder arthritis (Acute) Family history of prostate cancer in father (Chronic) Father of disease Osteoarthritis of right knee (Acute) Diplopia (Acute) With visual field defects [facility] Dr. 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 Macular edema present both eyes. Psoriasis (Chronic) GERD without esophagitis (Acute) Erectile dysfunction (Acute) Depressive disorder (Chronic) ADD (attention deficit disorder) (Acute) Hyperlipidemia (Acute) Hypertension (Chronic) Medical History Basal cell carcinoma Surgical History Benign neoplasm of skin of forehead 1952 - Refugee status - [place] History of tonsillectomy (~1964) [facility] History of hernia repair (~2021) [facility] History of Mohs micrographic surgery for skin cancer 04/26/2022 From [facility] ([facility] Gianluca Manning MD (basal cell carcinoma) Family History Mother Skin cancer Anxiety Depression Hypertension Social History Smoking/Tobacco Use Status: Former Tobacco Use Smokeless tobacco user: other (cigars once a month) Smoking risk assessment performed?: Yes Alcohol Intake: current Alcohol type: hard liquor Drug use: Never Substance use type: does not use Adopted: No Caregiver/Support person: No Foster care: No Household members: spouse, children and other Details: mother Housing: house Number of Children: 3 Education Level: other Details: Bachelors degree Do you need help understanding health information?: Never 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 Pets and animals: Yes Pets and animals: cat(s) and dog(s) Sexually active: Yes Do you think of yourself as: straight/heterosexual Current gender identity: male What is your relationship status?: How often do you talk on the phone with friends or family?: three or more times per week How often do you get together with friends or relatives?: three or more times per week Do you belong to any clubs or organized social groups?: no Panel score (0-1 are the most socially isolated patients): 2 What type of physical activity do you participate in: other Details: hiking Duration: 30-45 minutes/day Frequency: 5-6 times per week Doreen/Evangelical: Yazidi Special doreen needs: No Seatbelt use: always Helmet use: Yes Drive 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
[2024-08-03] MEDS: Lidocaine 1% Multi-Dose 50 ML VIAL (19:25)
== END 2024-08-03 19:40 | disposition home or self-care (01) ==
LOC: ER 19:40
PROVIDERS: Emergency Provider Emergency Medicine; PCP Family Medicine
DX: S61.215A Laceration without foreign body of left ring finger without damage to nail, initial encounter (principal); E11.9 Type 2 diabetes mellitus without complications; I10 Essential (primary) hypertension; E78.5 Hyperlipidemia, unspecified; Z79.4 Long term (current) use of insulin; Z79.84 Long term (current) use of oral hypoglycemic drugs; Z79.85 Long-term (current) use of injectable non-insulin antidiabetic drugs; Z79.82 Long term (current) use of aspirin; Z87.891 Personal history of nicotine dependence; W26.1XXA Contact with sword or dagger, initial encounter; Y92.018 Other place in single-family (private) house as the place of occurrence of the external cause
CPT/HCPCS: 12001; 99283; J2003

== ENCOUNTER 2024-09-26 07:29 | Outpatient (CLI) | payer BC, SELFPAY ==
[2024-09-26 08:20] LABS: Anion Gap 7.0 mmol/L (3-11); BUN 26 mg/dL (7-18); CO2 32.0 mmol/L (21.0-32.0); Calcium 9.3 mg/dL (8.5-10.1); Chloride 102 mmol/L (98-107); Cholesterol 120 mg/dL (<200); Estimated GFR 94.19 (mL/min/1.73m2); Glucose 160 mg/dL (74-106); HDL Cholesterol 66 mg/dL (>or=40); Potassium 4.2 mmol/L (3.5-5.1); Sodium 141 mmol/L (136-145); TSH (W/Ref FT4) 4.99 uIU/mL (0.36-3.74)
[2024-09-26 08:22] LABS: Triglyceride <25 mg/dL (<150)
[2024-09-26 08:33] LABS: LDL CHOLESTEROL 50 mg/dL (<100)
[2024-09-26 19:10] LABS: PSA, Screening 1.1 ng/mL (<=4.5)
== END 2024-09-26 07:30 | disposition home or self-care (01) ==
LOC: LBO 07:29
PROVIDERS: PCP Family Medicine; Visit Provider Family Medicine
DX: E11.9 Type 2 diabetes mellitus without complications (principal); Z79.4 Long term (current) use of insulin; Z80.42 Family history of malignant neoplasm of prostate; I10 Essential (primary) hypertension
CPT/HCPCS: 36415; 80048; 80061; 83721; 84153; 84439; 84443